=== PATIENT | female | born 1995 | race Caucasian/White ===

== ENCOUNTER 2020-10-25 19:37 | Emergency (ER) | payer MEDICAID, OTHER ==
[~2020-10-25] VITALS: Ht 172.7 cm; Wt 65.0 kg
[~2020-10-25 19:37] MED LIST: PREN1TAB60 PO
--- NOTE | 2020-10-25 19:37 | NUR ---
TASK RN: PT FARSHAD FROM [facility] ON LEGAL HOLD C/O N/V AND RIGHT UPPER QUAD ADB PAIN. BEGAN 30-45 MINUTES AGO. 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 PT SITTING UPRIGHT ON GURNEY, NADN, VSS. PT ABLE TO ANSWER SIMPLE QUESTIONS AND FOLLOW COMMANDS APPROPRIATELY. PT CONTINUALLY MOVING TONGUE IN AND PUT OF MOUTH. PT HAS NOT HAD ANY EPISODES OF VOMITING HERE OR WITH EMS. AWAITING ERP AT THIS TIME.
[2020-10-25 20:31] LABS: BASOPHILS % (AUTO) 0 % (0-1); EOSINOPHILS % (AUTO) 2 % (1-7); LYMPHOCYTES % (AUTO) 13 % (22-44); MEAN CORPUSCULAR HEMOGLOBIN 29.3 pg (27.0-34.8); MEAN CORPUSCULAR HGB CONC 32.8 g/dL (32.4-35.8); MEAN PLATELET VOLUME 9.6 fL (7.4-10.4); MONOCYTES % (AUTO) 6 % (2-9); NEUTROPHILS % (AUTO) 78 % (42-75); PLATELET COUNT 209 x10^3/uL (130-400); RED BLOOD COUNT 4.74 x10^6/uL (3.82-5.3); RED CELL DISTRIBUTION WIDTH 13.2 % (9.6-15.2)
[2020-10-25 20:39] LABS: ALANINE AMINOTRANSFERASE 19 U/L (12-78); ANION GAP 9 mmol/L (5-15); CHLORIDE 109 mmol/L (98-107); CREATININE 0.84 mg/dL (0.55-1.02)
[2020-10-25 20:44] LABS: ALKALINE PHOSPHATASE 71 U/L (45-117); BILIRUBIN,TOTAL 0.4 mg/dL (0.2-1.0); TOTAL PROTEIN 7.8 g/dL (6.4-8.2)
[2020-10-25 20:49] LABS: SALICYLATE LEVEL < 1.7 mg/dL (2.8-20.0)
[2020-10-25 21:34] LABS: AMPHETAMINE SCREEN, URINE Negative (Negative); BARBITURATE SCREEN, URINE Negative (Negative); BENZODIAZEPINE SCREEN, URINE Negative (Negative); CANNABINOID SCREEN, URINE Positive (Negative); COCAINE SCREEN, URINE Negative (Negative); METHADONE SCREEN, URINE Negative (Negative); OPIATE SCREEN, URINE Negative (Negative)
--- NOTE | 2020-10-25 21:56 | NUR ---
REPORT RECEIVED FROM FRANCES FOX
[2020-10-25] MEDS ORDERED: ONDANSETRON ODT 4 MG ONE (22:10)
[2020-10-25] MEDS ORDERED: ONDANSETRON ODT 4 MG PO ONE (22:30)
--- NOTE | 2020-10-25 22:59 | NUR ---
CALL TO [facility] REGARDING TRANSFER OF PT BACK TO FACILITY, REPORT GIVEN TO RN. PER RN "I WILL RUN THE INFO BY MY DOCTOR HERE AND GIVE A CALL BACK TO MAKE SURE WE CAN TAKE HER BACK." ERP AWARE. PT DENIES ANY ADDITIONAL NEEDS AT THIS TIME
[2020-10-25 23:03] VITALS: BP 115/70
--- NOTE | 2020-10-25 23:24 | NUR ---
CALL RECEIVED FROM ZAIN AT [facility]. FACILITY TO ACCEPT PT BACK, OK TO SET UP TRANSPORT AT THIS TIME. Addendum: 10/25/20 at 2329 by TOÑO CALL RECEIVED FROM ZAIN AT [facility]. FACILITY TO ACCEPT PT BACK, OK TO SET UP TRANSPORT AT THIS TIME. DR. LANGFORD ACCEPTING
--- NOTE | 2020-10-26 01:45 | NUR ---
PT AMBULAOTRY WITH STEADY GAIT TO [facility] BACK TO [facility] FOR REHAB MED[facility]INE. ALL BELONGINGS AND APPPROPRITE PAPERWORK WITH PT AND TRANSPORT STAFF UPON D/C
== END 2020-10-26 02:04 ==
LOC: ED 20:07
DX: K29.00 Acute gastritis without bleeding (principal); R11.2 Nausea with vomiting, unspecified
CPT/HCPCS: 36415; 80053; 80299; 80307; 80320; 80329; 84703; 85025; 99285; Q0162; G0480